=== PATIENT | female | born 1985 | race Caucasian/White ===

== ENCOUNTER 2022-05-04 17:45 | Emergency (ER) | payer OTHER, SELFPAY ==
--- NOTE | ~2022-05-04 | CT_ITS ---
EXAMINATION: CT SOFT TISSUE NECK WITH CONTRAST CLINICAL INFORMATION: Right facial swelling. Sore throat. History of sialadenitis. COMPARISON: None TECHNIQUE: Following the intravenous administration of 60 mL of Omnipaque 350 intravenous contrast, helical imaging was performed in the axial plane with generation of coronal and sagittal reformatted images. This CT examination was performed using dose optimization techniques as appropriate, variously including the following: *Automated exposure control *Adjustment of mA and/or kV according to patient size (this includes techniques or standardized protocols for targeted exams where dose is matched to indication/reason for exam; i.e. extremities or head) *Use of iterative reconstruction technique DLP: 825 mGy-cm FINDINGS: Inflammatory appearance of the right submandibular gland. Stranding in the surrounding fat. There is a stone in the right submandibular gland measuring 0.5 cm. Prominent right submandibular node measures 1.1 cm on series 2 image 62. No additional cervical adenopathy is identified. The parotid glands are homogeneous in attenuation. No contour abnormality is seen within the oral cavity or pharyngeal mucosal space. The laryngeal structures are normal. The parapharyngeal fat is preserved. No extra mucosal soft tissue mass or fluid collection is seen. No retropharyngeal fluid collection is seen. The thyroid gland is normal. The superior mediastinum is unremarkable. The lung apices are clear. The mastoid air cells and visualized portions of the paranasal sinuses are well-aerated. The temporomandibular joints are normal. No periapical disease is identified. No osseous abnormalities are seen. The imaged portions of the brain parenchyma are unremarkable. CT/CT soft tissue neck w IV con IMPRESSION: Inflammatory appearance of the right submandibular gland consistent with sialadenitis. 0.5 cm stone in the right submandibular gland.
--- NOTE | 2022-05-04 18:27 | ED.GENADULT ---
HPI - General Adult General Chief complaint: General Medical <Samantha Lancaster CNP - Last Filed: 05/04/22 18:35> Stated complaint: sent from urgent care/ swollen neck <Samantha Lancaster CNP - Last Filed: 05/04/22 18:35> Time Seen by Provider: 05/05/22 00:11 <Samantha Lancaster CNP - Last Filed: 05/04/22 18:35> Source: patient <Montserrat Handley MD - Last Filed: 05/05/22 00:49> Mode of arrival: ambulatory <Montserrat Handley MD - Last Filed: 05/05/22 00:49> Limitations: no limitations <Montserrat Handley MD - Last Filed: 05/05/22 00:49> History of Present Illness HPI narrative: Patient comes to the emergency room with referral from urgent care. Patient has been complaining of Sore throat, pain and swelling around the right side of the neck. This began last night. Patient went 1st to Urgent Care, she was advised to come to the ED to get a CT scan as she has purulent drainage when massaging the gland. Patient states that she has History of Sialadenitis and Sialolithiasis with uncussessful surgical procedure October 2016 <Montserrat Handley MD - Last Filed: 05/05/22 00:49> Related Data Home medications: Previous Rx's Medication Instructions Recorded cephalexin 500 mg capsule 500 mg PO BID #14 caps 05/05/22 ketorolac 10 mg tablet 10 mg PO TID PRN pain 5 days #10 05/05/22 tabs metronidazole 500 mg tablet 500 mg PO BID #14 tabs 05/05/22 <Samantha Lancaster CNP - Last Filed: 05/04/22 18:35> Allergies/adverse reactions: Allergies Allergy/AdvReac Type Severity Reaction Status Date / Time No Known Allergies Allergy Verified 05/04/22 18:32 [No Known Allergies*] <Samantha Lancaster CNP - Last Filed: 05/04/22 18:35> Review of Systems Review of Systems: Constitutional : No Weight loss, No Fever, No Chills, No Night Sweats, No Fatigue, No Malaise ENT/Mouth : No Hearing loss, No Ear Pain, No Nasal Congestion, No Sinus Pain, No Hoarseness, no rhinorrhea. Patient complaining of right submandibular pain, patient known to have sialadenitis Eyes: No Eye Pain, No Swelling, No Redness, No Foreign Body, No Discharge, No Vision Changes Cardiovascular : No Chest Pain, No SOB, No Dyspnea on Exertion, No Orthopnea, No Edema, No Palpitations Respiratory : No Cough, No Sputum, No Wheezing, No Smoke Exposure, No Dyspnea Gastrointestinal : No Nausea, No Vomiting, No Diarrhea, No Constipation, No abdominal Pain, No Hematochezia, No Melena Genitourinary : no irregular bleeding, No Dysuria, No Urinary Frequency, No Hematuria, No Urinary Incontinence, No Urgency, No Flank Pain, No Urinary Flow Changes, No Hesitancy Musculoskeletal : No joint pain, No Myalgias, No Joint Swelling Skin : No Skin Lesions, No rash Neuro : No Weakness, No Numbness, No Paresthesias, No Loss of Consciousness, No Dizziness, No Headache Psych : No Anxiety/Panic, No Depression, No SI/HI/AH/VH, No Social Issues, Heme/Lymph: No Bruising, No Bleeding,No Lymphadenopathy Endocrine : No Polyuria, No Polydipsia, No Temperature Intolerance <Montserrat Handley MD - Last Filed: 05/05/22 00:49> [facility] Past Medical History Medical History: Medical History (Updated 05/05/22 @ 00:46 by Montserrat Handley MD) Sialadenitis <Samantha Lancaster CNP - Last Filed: 05/04/22 18:35> Social History Social History: Social History Advance Directives: No Advance Directives Information Provided: No <Samantha Lancaster CNP - Last Filed: 05/04/22 18:35> Physical Exam ED Vital Signs: Vital Signs - 24 hr 05/04/22 18:28 05/05/22 00:23 Temperature 98.8 F 97.8 F Pulse Rate 98 95 Respiratory Rate 20 18 Blood Pressure 142/85 H 145/76 H Pulse Oximetry 99 97 Oxygen Delivery Method Room Air Room Air BMI result Body Mass Index 46.5 <Samantha Lancaster CNP - Last Filed: 05/04/22 18:35> Vital Signs - 24 hr 05/04/22 18:28 05/05/22 00:23 Temperature 98.8 F 97.8 F Pulse Rate 98 95 Respiratory Rate 20 18 Blood Pressure 142/85 H 145/76 H Pulse Oximetry 99 97 Oxygen Delivery Method Room Air Room Air BMI result Body Mass Index 46.5 <Montserrat Handley MD - Last Filed: 05/05/22 00:49> Const Other: Appearance: Alert. Oriented X3. No acute distress. Eyes: Pupils equal, round and reactive to light. ENT: Pharynx normal. I did not see any purulence. No pain to palpation under the tongue or submental region Neck: Swelling to the right submandibular space, no signs of cellulitis CVS: Normal heart rate and rhythm. Pulses normal. Normal S1 and S2 Respiratory: No respiratory distress. Breath sounds normal. No Wheezing. No rales Abdomen: Soft and nontender. No rigidity. No distention. Skin: Skin warm and dry. Normal skin color. Normal skin turgor. Extremities: No lower extremity edema. No Lacerations. No Rash Neuro: Oriented X 3. No motor deficit. No sensory deficit. Moving all extremities. No slurred speech. CN 2 through 12 grossly intact Psych: calm, cooperative, normal affect <Montserrat Handley MD - Last Filed: 05/05/22 00:49> Course Course Course Narrative: This is an RME: Additional HPI, ROS, PE not included below will be deferred to primary provider. Patient is a 37-year-old female who presents emergency department with referral from urgent care. Sore throat, pain and swelling to mouth. neck, salivary glands by her report. This began last night. Urgent care advised she needed CT scan as she has purulent drainage when massaging the gland. History of Sialadenitis and Sialolithiasis with uncussessful surgical procedure October 2016. Denies adiitional URI symptoms, fever, chills, inability to swallow, CP, SOB PE: buccal swelling, halitosis, R tonsilar hypertrophy, cervical lymphadenopathy Plan: labs, viral testing, Strep A testing, CT soft tissue neck <Samantha Lancaster CNP - Last Filed: 05/04/22 18:35> Medications Administered Discontinued Medications Generic Name Dose Route Start Last Admin Trade Name Freq PRN Reason Stop Dose Admin Iohexol 100 ml 05/04/22 22:42 05/04/22 22:42 Iohexol 350 Mg/Ml 100 Ml Infus..Btl IV 05/04/22 22:43 60 ml ONCE ONE Administration <Samantha Lancaster CNP - Last Filed: 05/04/22 18:35> Medications Administered Discontinued Medications Generic Name Dose Route Start Last Admin Trade Name Ophelia PRN Reason Stop Dose Admin Iohexol 100 ml 05/04/22 22:42 05/04/22 22:42 Iohexol 350 Mg/Ml 100 Ml Infus..Btl IV 05/04/22 22:43 60 ml ONCE ONE Administration <Montserrat Handley MD - Last Filed: 05/05/22 00:49> Medical Decision Making Medical Decision Making [facility] Narrative: -patient's white blood cell count slightly elevated 11. No fever chills. Bob's angina is not suspected -CT scan shows a 0.5 mm stone. States she is known to have this for several years. Per Urgent Care, purulent discharge was expressed while trying to milk the duct -patient was given 1 dose of IM Toradol, p.o. dexamethasone and viscous lidocaine for symptomatic control. Also, patient was given the 1st dose of antibiotics, metronidazole and cephalexin. -patient was provided with a copy of her CT scan, patient is trying to schedule an appointment with ENT <Montserrat Handley MD - Last Filed: 05/05/22 00:49> Differential Diagnosis Differential Diagnoses: The differential diagnosis associated with the presentation includes (Sialadenitis, strep throat, viral illness) <Montserrat Handley MD - Last Filed: 05/05/22 00:49> Lab Data [facility] Lab Attestation statement: I reviewed the patient's lab results. <Montserrat Handley MD - Last Filed: 05/05/22 00:49> Result Diagrams: 05/04/22 19:30 05/04/22 19:30 <Samantha Lancaster CNP - Last Filed: 05/04/22 18:35> Labs: Lab Results 05/04/22 05/04/22 05/04/22 Range/Units 18:36 18:58 18:58 WBC (4.8-10.8) X10*3/uL RBC (4.20-5.50) X10*6/uL Hgb (12.0-16.0) g/dl Hct (37.0-47.0) % MCV (80.0-98.0) fL MCH (27.0-33.0) pg MCHC (31.0-35.0) g/dl RDW (11.0-16.0) % Plt Count (160-400) X10*3/uL MPV (9.4-12.3) fL Immature Gran % (Auto) (0.0-0.4) % Neut % (Auto) (45-73) % Lymph % (Auto) (20-40) % [place] % (Auto) (2-11) % Eos % (Auto) (0-4) % Baso % (Auto) (0-2) % Lymph # (Auto) (1.2-4.9) X10*3/uL [place] # (Auto) (0.1-1.2) X10*3/uL Eos # (Auto) (0.0-0.4) X10*3/uL Baso # (Auto) (0.0-0.2) X10*3/uL Abs Immat Gran (auto) (0.00-0.03) X10*3/uL Absolute Neuts (auto) (2.0-8.3) x10*3/uL Absolute Nucleated RBC (0.0-0.012) X10*3/uL Nucleated RBC % (auto) (0.0-0.2) /100WBC Sodium (135-145) mmol/L Potassium (3.3-5.1) mmol/L Chloride (96-108) mmol/L Carbon Dioxide (22-29) mmol/L Anion Gap (12-20) BUN (9-16) mg/dL Creatinine (0.5-1.4) mg/dL Estim Creat Clear Calc Estimated GFR Random Glucose (60-115) mg/dL Calcium (8.4-10.2) mg/dL Total Bilirubin (0.0-1.0) mg/dL AST (5-31) U/L ALT (0-31) U/L Alkaline Phosphatase (39-117) U/L Total Protein (6.5-8.0) g/dL Albumin (3.5-5.0) g/dL Beta HCG, Quant mIU/mL COVID-19 ([facility]) Negative (Negative) COVID-19 Clin Com See Note Influenza Type A ([facility]) Negative (Negative) Influenza Type B ([facility]) Negative (Negative) Influenza A & B Note See Note S. pyogenes GrpA DONNA Negative (Negative) 05/04/22 05/04/22 Range/Units 19:30 19:30 WBC 11.0 H (4.8-10.8) X10*3/uL RBC 4.95 (4.20-5.50) X10*6/uL Hgb 13.5 (12.0-16.0) g/dl Hct 40.6 (37.0-47.0) % MCV 82.0 (80.0-98.0) fL MCH 27.3 (27.0-33.0) pg MCHC 33.3 (31.0-35.0) g/dl RDW 13.4 (11.0-16.0) % Plt Count 216 (160-400) X10*3/uL MPV 9.1 L (9.4-12.3) fL Immature Gran % (Auto) 0.4 (0.0-0.4) % Neut % (Auto) 65.0 (45-73) % Lymph % (Auto) 26.0 (20-40) % [place] % (Auto) 6.9 (2-11) % Eos % (Auto) 1.4 (0-4) % Baso % (Auto) 0.3 (0-2) % Lymph # (Auto) 2.9 (1.2-4.9) X10*3/uL [place] # (Auto) 0.8 (0.1-1.2) X10*3/uL Eos # (Auto) 0.2 (0.0-0.4) X10*3/uL Baso # (Auto) 0.0 (0.0-0.2) X10*3/uL Abs Immat Gran (auto) 0.04 H (0.00-0.03) X10*3/uL Absolute Neuts (auto) 7.2 (2.0-8.3) x10*3/uL Absolute Nucleated RBC 0.000 (0.0-0.012) X10*3/uL Nucleated RBC % (auto) 0.0 (0.0-0.2) /100WBC Sodium 140 (135-145) mmol/L Potassium 4.0 (3.3-5.1) mmol/L Chloride 107 (96-108) mmol/L Carbon Dioxide 22 (22-29) mmol/L Anion Gap 15 (12-20) BUN 12 (9-16) mg/dL Creatinine 0.81 (0.5-1.4) mg/dL Estim Creat Clear Calc 147.0 Estimated GFR > 60 Random Glucose 88 (60-115) mg/dL Calcium 8.8 (8.4-10.2) mg/dL Total Bilirubin 0.7 (0.0-1.0) mg/dL AST 17 (5-31) U/L ALT 21 (0-31) U/L Alkaline Phosphatase 62 (39-117) U/L Total Protein 6.8 (6.5-8.0) g/dL Albumin 3.9 (3.5-5.0) g/dL Beta HCG, Quant < 2 mIU/mL COVID-19 ([facility]) (Negative) COVID-19 Clin Com Influenza Type A ([facility]) (Negative) Influenza Type B ([facility]) (Negative) Influenza A & B Note S. pyogenes GrpA DONNA (Negative) <Samantha Lancaster, CLINICAL LAB ASSISTANT - Last Filed: 05/04/22 18:35> Lab Results 05/04/22 05/04/22 05/04/22 Range/Units 18:36 18:58 18:58 WBC (4.8-10.8) X10*3/uL RBC (4.20-5.50) X10*6/uL Hgb (12.0-16.0) g/dl Hct (37.0-47.0) % MCV (80.0-98.0) fL MCH (27.0-33.0) pg MCHC (31.0-35.0) g/dl RDW (11.0-16.0) % Plt Count (160-400) X10*3/uL MPV (9.4-12.3) fL Immature Gran % (Auto) (0.0-0.4) % Neut % (Auto) (45-73) % Lymph % (Auto) (20-40) % [place] % (Auto) (2-11) % Eos % (Auto) (0-4) % Baso % (Auto) (0-2) % Lymph # (Auto) (1.2-4.9) X10*3/uL [place] # (Auto) (0.1-1.2) X10*3/uL Eos # (Auto) (0.0-0.4) X10*3/uL Baso # (Auto) (0.0-0.2) X10*3/uL Abs Immat Gran (auto) (0.00-0.03) X10*3/uL Absolute Neuts (auto) (2.0-8.3) x10*3/uL Absolute Nucleated RBC (0.0-0.012) X10*3/uL Nucleated RBC % (auto) (0.0-0.2) /100WBC Sodium (135-145) mmol/L Potassium (3.3-5.1) mmol/L Chloride (96-108) mmol/L Carbon Dioxide (22-29) mmol/L Anion Gap (12-20) BUN (9-16) mg/dL Creatinine (0.5-1.4) mg/dL Estim Creat Clear Calc Estimated GFR Random Glucose (60-115) mg/dL Calcium (8.4-10.2) mg/dL Total Bilirubin (0.0-1.0) mg/dL AST (5-31) U/L ALT (0-31) U/L Alkaline Phosphatase (39-117) U/L Total Protein (6.5-8.0) g/dL Albumin (3.5-5.0) g/dL Beta HCG, Quant mIU/mL COVID-19 ([facility]) Negative (Negative) COVID-19 Clin Com See Note Influenza Type A ([facility]) Negative (Negative) Influenza Type B ([facility]) Negative (Negative) Influenza A & B Note See Note S. pyogenes GrpA DONNA Negative (Negative) 05/04/22 05/04/22 Range/Units 19:30 19:30 WBC 11.0 H (4.8-10.8) X10*3/uL RBC 4.95 (4.20-5.50) X10*6/uL Hgb 13.5 (12.0-16.0) g/dl Hct 40.6 (37.0-47.0) % MCV 82.0 (80.0-98.0) fL MCH 27.3 (27.0-33.0) pg MCHC 33.3 (31.0-35.0) g/dl RDW 13.4 (11.0-16.0) % Plt Count 216 (160-400) X10*3/uL MPV 9.1 L (9.4-12.3) fL Immature Gran % (Auto) 0.4 (0.0-0.4) % Neut % (Auto) 65.0 (45-73) % Lymph % (Auto) 26.0 (20-40) % [place] % (Auto) 6.9 (2-11) % Eos % (Auto) 1.4 (0-4) % Baso % (Auto) 0.3 (0-2) % Lymph # (Auto) 2.9 (1.2-4.9) X10*3/uL [place] # (Auto) 0.8 (0.1-1.2) X10*3/uL Eos # (Auto) 0.2 (0.0-0.4) X10*3/uL Baso # (Auto) 0.0 (0.0-0.2) X10*3/uL Abs Immat Gran (auto) 0.04 H (0.00-0.03) X10*3/uL Absolute Neuts (auto) 7.2 (2.0-8.3) x10*3/uL Absolute Nucleated RBC 0.000 (0.0-0.012) X10*3/uL Nucleated RBC % (auto) 0.0 (0.0-0.2) /100WBC Sodium 140 (135-145) mmol/L Potassium 4.0 (3.3-5.1) mmol/L Chloride 107 (96-108) mmol/L Carbon Dioxide 22 (22-29) mmol/L Anion Gap 15 (12-20) BUN 12 (9-16) mg/dL Creatinine 0.81 (0.5-1.4) mg/dL Estim Creat Clear Calc 147.0 Estimated GFR > 60 Random Glucose 88 (60-115) mg/dL Calcium 8.8 (8.4-10.2) mg/dL Total Bilirubin 0.7 (0.0-1.0) mg/dL AST 17 (5-31) U/L ALT 21 (0-31) U/L Alkaline Phosphatase 62 (39-117) U/L Total Protein 6.8 (6.5-8.0) g/dL Albumin 3.9 (3.5-5.0) g/dL Beta HCG, Quant < 2 mIU/mL COVID-19 ([facility]) (Negative) COVID-19 Clin Com Influenza Type A ([facility]) (Negative) Influenza Type B ([facility]NA) (Negative) Influenza A & B Note S. pyogenes GrpA DONNA (Negative) <Montserrat Handley MD - Last Filed: 05/05/22 00:49> Independent Interpretation I performed an independent interpretation of an: CT Scan (My interpretation of soft tissue of the neck CT scan: There is a 0.5 cm approximately stone in the submandibular space) <Montserrat Handley MD - Last Filed: 05/05/22 00:49> Radiology Impression Discussion of test interpretation with radiology: I have reviewed the radiologist's reading. <Montserrat Handley MD - Last Filed: 05/05/22 00:49> Radiologist Impression: FINDINGS: Inflammatory appearance of the right submandibular gland. Stranding in the surrounding fat. There is a stone in the right submandibular gland measuring 0.5 cm. Prominent right submandibular node measures 1.1 cm on series 2 image 62. No additional cervical adenopathy is identified. The parotid glands are homogeneous in attenuation. No contour abnormality is seen within the oral cavity or pharyngeal mucosal space. The laryngeal structures are normal. The parapharyngeal fat is preserved. No extra mucosal soft tissue mass or fluid collection is seen. No retropharyngeal fluid collection is seen. The thyroid gland is normal. The superior mediastinum is unremarkable. The lung apices are clear. The mastoid air cells and visualized portions of the paranasal sinuses are well-aerated. The temporomandibular joints are normal. No periapical disease is identified. No osseous abnormalities are seen. The imaged portions of the brain parenchyma are unremarkable. CT/CT soft tissue neck w IV con IMPRESSION: Inflammatory appearance of the right submandibular gland consistent with sialadenitis. 0.5 cm stone in the right submandibular gland. ? <Montserrat Handley MD - Last Filed: 05/05/22 00:49> Discharge Plan Discharge Clinical Impression: Sialadenitis <Samantha Lancaster CNP - Last Filed: 05/04/22 18:35> Patient Disposition: Home, Self-Care <Samantha Lancaster CNP - Last Filed: 05/04/22 18:35> Instructions: Sialoadenitis (ED) <Samantha Lancaster CNP - Last Filed: 05/04/22 18:35> Additional Instructions: Please follow-up with your primary care physician tomorrow. If you have any worsening or new symptoms, please return to the emergency room or call 911 <Samantha Lancaster CNP - Last Filed: 05/04/22 18:35> Prescriptions: New ketorolac 10 mg tablet 10 mg PO TID PRN (Reason: pain) 5 Days Qty: 10 0RF Rx Instructions: Do not take NSAIDs with this medication, only Tylenol if needed cephalexin 500 mg capsule 500 mg PO BID Qty: 14 0RF metronidazole 500 mg tablet 500 mg PO BID Qty: 14 0RF <Samantha Lancaster CNP - Last Filed: 05/04/22 18:35> Referrals: Vikash Steel [Physician] - 05/06/22 <Samantha Lancaster CNP - Last Filed: 05/04/22 18:35>
[2022-05-04 18:28] VITALS: BP 142/85; PULSE 98; RESP 20; TEMP 37.1; O2SAT 99; BMI 46.5
[2022-05-04 18:55] LABS: IDNOW Serial# 6674DD1D; Strep A Nucleic Acid Negative (Negative)
[2022-05-04 19:27] LABS: COVID-19 Test Negative (Negative); IDNOW Serial# 16C4AD1C
[2022-05-04 19:30] LABS: IDNOW Serial# BCCEAD1C; Influenza A Negative (Negative); Influenza B2 Negative (Negative)
[2022-05-04 19:38] LABS: MANUAL DIFF FLAG NO
[2022-05-04 19:40] LABS: Basophils Percent Auto 0.3 % (0-2); Eosinophils Absolute Auto 0.2 X10*3/uL (0.0-0.4); Eosinophils Percent Auto 1.4 % (0-4); Hematocrit 40.6 % (37.0-47.0); Hemoglobin 13.5 g/dl (12.0-16.0); Imm Gran Abs Auto 0.04 X10*3/uL (0.00-0.03); Imm Gran Pct Auto 0.4 % (0.0-0.4); Lymphocytes Absolute Auto 2.9 X10*3/uL (1.2-4.9); Mean Corpuscular HGB Conc 33.3 g/dl (31.0-35.0); Mean Corpuscular Hemoglobin 27.3 pg (27.0-33.0); Mean Platelet Volume 9.1 fL (9.4-12.3); Monocytes Absolute Auto 0.8 X10*3/uL (0.1-1.2); Monocytes Percent Auto 6.9 % (2-11); Neutrophils Absolute Auto 7.2 x10*3/uL (2.0-8.3); Platelet Count 216 X10*3/uL (160-400); Red Blood Count 4.95 X10*6/uL (4.20-5.50); Red Cell Distribution Width 13.4 % (11.0-16.0)
[2022-05-04 20:18] LABS: Alanine Aminotransferase 21 U/L (0-31); Albumin Level 3.9 g/dL (3.5-5.0); Alkaline Phosphatase 62 U/L (39-117); Anion Gap 15 (12-20); Aspartate Amino Transferase 17 U/L (5-31); Bilirubin Total 0.7 mg/dL (0.0-1.0); Blood Urea Nitrogen 12 mg/dL (9-16); Calcium 8.8 mg/dL (8.4-10.2); Carbon Dioxide 22 mmol/L (22-29); Chloride 107 mmol/L (96-108); Estimated Glomerular Filt Rate > 60; Glucose Random 88 mg/dL (60-115); HCG Quantitative < 2 mIU/mL; Sodium 140 mmol/L (135-145); Total Protein 6.8 g/dL (6.5-8.0)
[2022-05-04] MEDS: iohexoL 350 MG/ML 100 ML INFUS..BTL IV (22:42)
[2022-05-05 00:23] VITALS: BP 145/76; PULSE 95; RESP 18; TEMP 36.6; O2SAT 97
[2022-05-05] MEDS: Lidocaine HCl Viscous 2 % 15 ML SOLUTION MUCOUS MEM (00:30)
[2022-05-05] MEDS: dexAMETHasone sod phosphate 4 MG/ML VIAL 6 MG IVPUSH (00:30)
[2022-05-05] MEDS: cephALEXin 500 MG CAPSULE PO (00:31)
[2022-05-05] MEDS: metroNIDAZOLE 500 MG TABLET PO (00:31)
[2022-05-05] MEDS: Ketorolac Tromethamine 60 MG/2 ML VIAL IM (00:32)
== END 2022-05-05 01:05 | disposition home or self-care (01) ==
PROVIDERS: Nurse Practitioner Family; Emergency Provider Emergency Medicine
DX: K11.20 Sialoadenitis, unspecified (principal); M54.2 Cervicalgia; J02.9 Acute pharyngitis, unspecified; R51.9 Headache, unspecified; Z20.822 Contact with and (suspected) exposure to COVID-19; Z20.828 Contact with and (suspected) exposure to other viral communicable diseases; Z79.899 Other long term (current) drug therapy
CPT/HCPCS: 36415; 70491; 80053; 84702; 85025; 87502; 87635; 87651; 96372; 96374; 99283; 99284; J1100; J1885; Q9967